=== PATIENT | female | born 1940 | race African-American/Black ===

== ENCOUNTER 2016-11-19 16:39 | Emergency (ER) | payer MEDICARE ==
[2016-11-19 18:05] VITALS: BP 149/88
== END 2016-11-19 19:10 | disposition left against medical advice (07) ==
LOC: ED 16:39
DX: I95.9 Hypotension, unspecified (principal); Z53.21 Procedure and treatment not carried out due to patient leaving prior to being seen by health care provider
CPT/HCPCS: 93005

== ENCOUNTER 2016-11-27 15:58 | Emergency (ER) | payer MEDICARE ==
[2016-11-27 18:20] VITALS: BP 164/99
--- NOTE | 2016-11-29 23:35 | ED ---
Antonette Ruvalcaba Claudia, scribed for James Ivan MD on 11/27/16 at 1719 . Hypertension - HPI Summary HPI Summary: 76 year old female presents to the ED with HTN. Pt notes that she is also having some intermittent numbness in her lower leg/ ankle- PMHx of peripheral neuropathy is noted. Pt notes that she takes 25mg of Losartan daily ( for the past 3 years) and is very strict about taking her RX. Pt also takes 81mg of aspirin every day. Pt notes that she began to have fluctuations in her BP and has now began taking a home remedy of mckinnon juice and garlic and it has made her BP more regular. Pt takes her BP every morning before breakfast, however this pm she began to feel very "jittery" so she took it and it was high at 179/ 105. Pt notes notes that she ate some salty foods yesterday and is unsure if that contributed to her high BP today. Pt notes her BP this am was 150/95. She notes that she feels okay now. Pt also noted PMHx of intermittent AFib but does not take any Rx for it. Pt notes her last episode of Afib was about 2 days ago which spontaneously resolved. PCP Dr. Jiang. - History of Current Complaint Chief Complaint: EDHypertension Stated Complaint: HIGH BLOOD PRESSURE Time Seen by Provider: 11/27/16 17:08 Hx Obtained From: Patient Onset/Duration: Started Minutes Ago, Resolved Timing: Intermittent - Allergies/Home Medications Allergies/Adverse Reactions: Allergies Allergy/AdvReac Type Severity Reaction Status Date / Time Penicillins [PCN] Allergy Unknown Verified 11/19/16 16:58 Reaction Details PMH/Surg Hx/FS Hx/Imm Hx Previously Healthy: Yes Endocrine/Hematology History: Denies: Hx Diabetes Cardiovascular History: Reports: Hx Hypertension, Other Cardiovascular Problems/ Disorders - 1st degree heart block ongoing for the last 50 years. Denies: Hx Myocardial Infarction, Hx Pacemaker/ICD History: Denies: Hx Renal Disease Musculoskeletal History: Reports: Hx Bursitis Sensory History: Reports: Hx Contacts or Glasses Denies: Hx Hearing Aid Opthamlomology History: Reports: Hx Contacts or Glasses Neurological History: Reports: Other Neuro Impairments/Disorders - PAIN CLINIC PATIENT, neuropathy hx Psychiatric History: Denies: Hx Panic Disorder Infectious Disease History: No Infectious Disease History: Denies: Traveled Outside the [place] in Last 30 Days - Family History Known Family History: Positive: Hypertension - Mother Negative: Diabetes - Social History Alcohol Use: None Substance Use Type: Reports: None Smoking Status (MU): Never Smoked Tobacco Review of Systems Constitutional: Negative Negative: Fever Eyes: Negative ENT: Negative Positive: Other - high BP . Negative: Palpitations, Chest Pain Respiratory: Negative Gastrointestinal: Negative Genitourinary: Negative Musculoskeletal: Negative Skin: Negative Neurological: Negative Psychological: Normal All Other Systems Reviewed And Are Negative: Yes Physical Exam Triage Information Reviewed: Yes Vital Signs On Initial Exam: Initial Vitals Temp Pulse Resp BP Pulse Ox 97.6 F 71 18 177/102 100 11/27/16 16:00 11/27/16 16:00 11/27/16 16:00 11/27/16 16:00 11/27/16 16:00 Vital Signs Reviewed: Yes Appearance: Positive: Well-Appearing, No Pain Distress Skin: Positive: Warm, Skin Color Reflects Adequate Perfusion, Dry Eyes: Positive: Normal ENT: Positive: Normal ENT inspection Respiratory/Lung Sounds: Positive: Clear to Auscultation, Breath Sounds Present Cardiovascular: Positive: RRR Musculoskeletal: Positive: Normal, Strength/ROM Intact Neurological: Positive: Normal, Sensory/Motor Intact, Other - bilateral stokckng glove neuropathy from ankle down. nml capillary refill on feet blaterally Psychiatric: Positive: Affect/Mood Appropriate Diagnostics - Vital Signs Vital Signs Temp Pulse Resp BP Pulse Ox 11/27/16 16:52 179/100 11/27/16 16:00 97.6 F 71 18 177/102 100 - Laboratory Lab Statement: Any lab studies that have been ordered have been reviewed, and results considered in the medical decision making process. Re-Evaluation - Re-Evaluation 1 Re-Evaluation Time: 18:12 Change: Improved - pt is feeling improved with a decrease in BP in ED and is ready to be d/c home with PCP follow-up appt. Hypertension Course/Dx - Diagnoses Provider Diagnoses: Hypertension Discharge - Discharge Plan Condition: Stable Disposition: HOME Patient Education Materials: Hypertension (ED) Referrals: Israel Marquez MD [Primary Care Provider] - 3 Days The documentation as recorded by the Antonette trujillo Claudia accurately reflects the service I personally performed and the decisions made by , James Ivan MD.
== END 2016-11-27 18:24 | disposition home or self-care (01) ==
LOC: ED 15:58
DX: I10 Essential (primary) hypertension (principal)
CPT/HCPCS: 99281

== ENCOUNTER 2017-01-07 08:49 | Emergency (ER) | payer MEDICARE ==
--- NOTE | 2017-01-07 10:02 | RAD ---
Indication: RIGHT ankle and foot pain post fall last night. Heavy weight fell on RIGHT foot. Neuropathy. Comparison: No relevant prior exams available on the [facility] PACS. Technique: AP, mortise, and lateral views RIGHT foot. AP and lateral views RIGHT ankle. Report: Negative for fracture or articular malalignment at the ankle or foot. Negative for fracture. Polyarticular degenerative arthropathy mild in severity from the talocrural joint posteriorly through the transverse tarsal, intertarsal, and tarsometatarsal articulations as well as the first metatarsal phalangeal joint. Small Achilles tendon insertion bone spur. Mild nonfocal soft tissue swelling. IMPRESSION: 1. Negative for fracture or malalignment. 2. Mild nonfocal soft tissue swelling. 3. Polyarticular mild osteoarthritis.
--- NOTE | 2017-01-07 10:02 | RAD ---
Indication: RIGHT ankle and foot pain post fall last night. Heavy weight fell on RIGHT foot. Neuropathy. Comparison: No relevant prior exams available on the [facility] PACS. Technique: AP, mortise, and lateral views RIGHT foot. AP and lateral views RIGHT ankle. Report: Negative for fracture or articular malalignment at the ankle or foot. Negative for fracture. Polyarticular degenerative arthropathy mild in severity from the talocrural joint posteriorly through the transverse tarsal, intertarsal, and tarsometatarsal articulations as well as the first metatarsal phalangeal joint. Small Achilles tendon insertion bone spur. Mild nonfocal soft tissue swelling. IMPRESSION: 1. Negative for fracture or malalignment. 2. Mild nonfocal soft tissue swelling. 3. Polyarticular mild osteoarthritis.
--- NOTE | 2017-01-07 10:25 | ED ---
Lower Extremity - HPI Summary HPI Summary: Patient presents to ED after grandson fell on her right foot yesterday. She is not experiencing any pain, but notes that she has neuropathy and was told to get checked out anytime she injures her feet. She notes to some swelling over her right foot and some tenderness to the lateral right ankle, but denies ecchymosis or laceration. She is able to bear weight and walk. Denies blood thinners and otherwise healthy. - History of Current Complaint Chief Complaint: EDExtremityLower Stated Complaint: RIGHT FOOT INJURY Time Seen by Provider: 01/07/17 09:02 Hx Obtained From: Patient Mechanism Of Injury: Blunt Trauma Onset/Duration: Minutes Severity Initially: Mild Severity Currently: Mild Pain Intensity: 4 Pain Scale Used: 0-10 Numeric Timing: Constant Character Of Pain: Unable To Describe - diabetic neuropathy, denies any pain Associated Signs And Symptoms: Positive: Swelling Aggravating Factor(s): Nothing Alleviating Factor(s): Rest Able to Bear Weight: Yes - Allergies/Home Medications Allergies/Adverse Reactions: Allergies Allergy/AdvReac Type Severity Reaction Status Date / Time Penicillins [PCN] Allergy Unknown Verified 01/07/17 08:52 Reaction Details PMH/Surg Hx/FS Hx/Imm Hx Previously Healthy: Yes Endocrine/Hematology History: Denies: Hx Diabetes Cardiovascular History: Reports: Hx Hypertension, Other Cardiovascular Problems/ Disorders - 1st degree heart block ongoing for the last 50 years. Denies: Hx Myocardial Infarction, Hx Pacemaker/ICD History: Denies: Hx Renal Disease Musculoskeletal History: Reports: Hx Bursitis Denies: Hx Osteoporosis Sensory History: Reports: Hx Contacts or Glasses Denies: Hx Hearing Aid Opthamlomology History: Reports: Hx Contacts or Glasses Neurological History: Reports: Other Neuro Impairments/Disorders - PAIN CLINIC PATIENT, neuropathy hx Psychiatric History: Denies: Hx Panic Disorder Infectious Disease History: No Infectious Disease History: Denies: Traveled Outside the [place] in Last 30 Days - Family History Known Family History: Positive: Hypertension - Mother Negative: Diabetes - Social History Occupation: Retired Lives: With Family Alcohol Use: None Substance Use Type: Reports: None Hx Tobacco Use: No Smoking Status (MU): Never Smoked Tobacco Review of Systems Constitutional: Negative Cardiovascular: Negative Respiratory: Negative Genitourinary: Negative Positive: see HPI, hematuria Positive: Other - neuropathy at baseline Skin: Negative Neurological: Negative All Other Systems Reviewed And Are Negative: Yes Physical Exam Triage Information Reviewed: Yes Vital Signs On Initial Exam: Initial Vitals Temp Pulse Resp BP Pulse Ox 98.4 F 73 18 138/88 99 01/07/17 08:52 01/07/17 08:52 01/07/17 08:52 01/07/17 08:52 01/07/17 08:52 Vital Signs Reviewed: Yes Appearance: Positive: Well-Appearing, Well-Nourished Skin: Positive: Warm, Skin Color Reflects Adequate Perfusion Eyes: Positive: Normal, EDWARD Neck: Positive: Supple, No Lymphadenopathy Respiratory/Lung Sounds: Positive: Clear to Auscultation, Breath Sounds Present Cardiovascular: Positive: Normal, RRR Musculoskeletal: Positive: Normal, Strength/ROM Intact, Pain @ - tenderness over lateral portion of right ankle, Edema Right - slight swelling over right foot, Other - no pain d/t neuropathy Neurological: Positive: Normal, Speech Normal Psychiatric: Positive: Normal Diagnostics - Vital Signs Vital Signs Temp Pulse Resp BP Pulse Ox 01/07/17 08:52 98.4 F 73 18 138/88 99 - Laboratory Lab Statement: Any lab studies that have been ordered have been reviewed, and results considered in the medical decision making process. - Radiology No standard instances Xray Interpretation: Positive (See Comments) Radiology Interpretation Completed By: Radiologist - IMPRESSION: 1. Negative for fracture or malalignment. 2. Mild nonfocal soft tissue swelling. 3. Polyarticular mild osteoarthritis. Lower Extremity Course/Dx - Course Course Of Treatment: Right ankle and foot negative for any fracture. Patient able to ambulate and denies any pain. Discharge home with return precautions. Patient agrees with plan. - Diagnoses Differential Diagnosis/HQI/PQRI: Positive: Contusion, Fracture (Closed), Sprain , Strain, Tendonitis Provider Diagnoses: Contusion of right foot Discharge - Discharge Plan Condition: Stable Disposition: HOME Patient Education Materials: Foot Contusion (ED) Referrals: Israel Marquez MD [Primary Care Provider] - Additional Instructions: Follow up with your PCP. If symptoms become worse, come back to ED.
[2017-01-07 10:47] VITALS: BP 135/67
== END 2017-01-07 10:45 | disposition home or self-care (01) ==
LOC: ED 08:49
DX: S90.31XA Contusion of right foot, initial encounter (principal); W19.XXXA Unspecified fall, initial encounter; Y92.9 Unspecified place or not applicable; Z88.0 Allergy status to penicillin; I10 Essential (primary) hypertension; Z79.82 Long term (current) use of aspirin
CPT/HCPCS: 99281